=== PATIENT | male | born 1945 ===

== ENCOUNTER 2020-12-01 16:24 | Outpatient (CLI) | payer SELFPAY ==
--- NOTE | 2020-12-01 16:34 | XRR_ITS ---
PROCEDURE INFORMATION: Exam: XR Right Ankle Exam date and time: 12/01/2020 4:34 PM Age: 75 years old Clinical indication: Injury or trauma; Fall; Sprain or strain; Ankle; Right; Prior surgery; Additional info: S99.911a - unspecified injury of right ankle, initial enc. . . TECHNIQUE: Imaging protocol: XR Right ankle. Views: 3 or more views. COMPARISON: No relevant prior studies available. FINDINGS: Bones/joints: Bones are moderately osteopenic. No fracture is identified. Soft tissues: Soft tissue swelling laterally. XR/XR ankle RT min 3V* [id number] IMPRESSION: No fracture is identified.
== END 2020-12-01 16:25 | disposition home or self-care (01) ==
PROVIDERS: Visit Provider Registered Nurse Neonatal Intensive Care
DX: S99.911A Unspecified injury of right ankle, initial encounter (principal); X58.XXXA Exposure to other specified factors, initial encounter
CPT/HCPCS: 73610

== ENCOUNTER 2021-01-06 09:17 | Outpatient (CLI) | payer SELFPAY ==
[2021-01-06 10:53] LABS: Basophils % 0.7 %; Eosinophils # 0.4 10^3/uL (0.0-0.8); Eosinophils % 6.2 %; Hematocrit 39.2 % (42.0-52.0); Hemoglobin 12.8 g/dL (11.7-16.6); Lymphocytes # 1.9 10^3/uL (0.8-4.8); Lymphocytes % 30.9 %; Mean Corpuscular HGB Conc 32.7 g/dL (30.0-36.0); Mean Corpuscular Hemoglobin 29.2 pg (28.0-34.0); Mean Corpuscular Volume 89.3 fl (80-94); Mean Platelet Volume 9.6 fL (7.4-10.4); Monocytes # 0.6 10^3/uL (0.2-0.9); Monocytes % 10.3 %; Neutrophils # 3.15 10^3/uL (1.8-7.7); Neutrophils % 51.6 %; Nucleated Red Blood Cells % 0 %; Platelet Count 230 10^3/cmm (130-400); Red Blood Count 4.39 10^6/uL (4.1-5.3); Red Cell Distribution Width 13.6 % (12.1-15.1); White Blood Count 6.1 10^3/uL (4.0-10.0)
[2021-01-06 11:30] LABS: Free T4 Free Thyroxine 0.94 ng/dL (0.82-1.77); Prostate Specific Antigen Scr 0.55 ng/mL (0-4); Thyroid Stimulating Hormone 7.35 uIU/mL (0.27-4.20)
[2021-01-06 11:42] LABS: Alanine Aminotransferase 21 U/L (0-41); Albumin Level 4.2 g/dL (3.5-5.2); Alkaline Phosphatase 46 IU/L (40-130); Aspartate Amino Transferase 18 U/L (0-40); Blood Urea Nitrogen 11 mg/dL (8-23); Calcium 8.9 mg/dL (8.5-10.5); Carbon Dioxide 24 mmol/L (22-29); Chloride 98 mmol/L (98-107); Chol HDL Ratio 2.02 mg/dL (1.0-5.00); Cholesterol 99 mg/dL (0-200); Globulin 2.6 g/dL (1.3-4.6); Glucose 94 mg/dL (65-115); HDL Cholesterol 49 mg/dL (60-100); LDL Cholesterol Calculated 36 mg/dL (50-129); LDL HDL Ratio 0.73 RATIO (0.00-3.22); Osmolality Calculated 279 mOsm/kg (285-295); Sodium 135 mmol/L (136-145); Total Bilirubin 1.1 mg/dL (0.15-1.2); Total Protein 6.8 g/dL (6.6-8.7); Triglycerides 71 mg/dL (0-150)
[2021-01-06 11:43] LABS: Anion Gap 17.6 (5-19); Potassium 4.6 mmol/L (3.5-5.1)
[2021-01-06 12:13] LABS: Vitamin B12 1013 pg/mL (232-1245)
== END 2021-01-06 09:18 | disposition home or self-care (01) ==
PROVIDERS: Visit Provider Family Medicine
DX: I10 Essential (primary) hypertension (principal)
CPT/HCPCS: 80053; 80061; 82607; 84439; 84443; 85025; G0103

== ENCOUNTER → 2021-03-12 14:10 | Outpatient (BNVA) | payer SELFPAY | DX: E03.9 Hypothyroidism, unspecified (principal) | CPT/HCPCS: 84439; 84443 ==